=== PATIENT | female | born 2000 | race Caucasian/White ===

== ENCOUNTER 2023-09-17 17:27 | Observation (INO) | payer OTHER | END 2023-09-17 21:30 | disposition home or self-care (01) | LOC: FBC 17:27 | PROVIDERS: ADMIT Obstetrics & Gynecology; ATTEND Obstetrics & Gynecology | DX: O9A.212 Injury, poisoning and certain other consequences of external causes complicating pregnancy, second trimester (principal); S39.81XA Other specified injuries of abdomen, initial encounter; Z3A.25 25 weeks gestation of pregnancy | CPT/HCPCS: G0378 ==